=== PATIENT | male | born 1985 | race Caucasian/White ===

== ENCOUNTER 2017-10-06 03:47 | Emergency (ER) | payer SELFPAY ==
[2017-10-06] MEDS: SOD CHLORIDE 0.9% 1,000 ML IV (04:27)
[2017-10-06] MEDS: morphine 4 MG/ML VIAL IV (04:28)
[2017-10-06] MEDS: ONDANSETRON 4 MG INJ IV (04:28)
[2017-10-06 04:41] LABS: ADD MAN DIFF? NO
[2017-10-06 04:43] LABS: WHITE BLOOD COUNT 4.8 10^3/ul (4.8-10.8)
[2017-10-06 04:43] LABS: BASOPHILS % 0.2 % (0.0-2.0); HEMATOCRIT 44.4 % (42.0-52.0); HEMOGLOBIN 15.6 g/dl (14.0-18.0); LYMPHOCYTES # 0.8 10^3/ul (0.8-2.9); LYMPHOCYTES % 17.6 % (15.0-51.0); MEAN CORPUSCULAR HEMOGLOBIN 31.4 pg (29.0-33.0); MEAN CORPUSCULAR HGB CONC 35.1 g/dl (32.0-37.0); MEAN CORPUSCULAR VOLUME 89.3 fl (82.0-101.0); MONOCYTE # 0.5 10^3/ul (0.3-0.9); MONOCYTES % 10.1 % (0.0-11.0); NEUTROPHIL # 3.4 10^3/ul (1.6-7.5); NEUTROPHILS % 71.9 % (39.0-77.0); PLATELET COUNT 164 10^3/UL (140-415); RED BLOOD COUNT 4.97 10^6/ul (4.70-6.10); RED CELL DISTRIBUTION WIDTH 13.6 % (11.5-14.5)
[2017-10-06 05:03] LABS: ALANINE AMINOTRANSFERASE 195 IU/L (13-69); ALBUMIN 5.2 g/dl (3.3-4.9); ALBUMIN/GLOBULIN RATIO 1.36; ALKALINE PHOSPHATASE 116 IU/L (42-121); ANION GAP 27 (8-16); ASPARTATE AMINO TRANSFERASE 231 IU/L (15-46); BILIRUBIN,INDIRECT 1.9 mg/dl (0-1.1); BILIRUBIN,TOTAL 1.9 mg/dl (0.2-1.3); BLOOD UREA NITROGEN 17 mg/dl (7-20); CARBON DIOXIDE 30 mmol/L (21-31); CHLORIDE 86 mmol/L (97-110); CREATININE 0.87 mg/dl (0.61-1.24); GLUCOSE 117 mg/dl (70-220); LIPASE 531 U/L (23-300); POTASSIUM 3.5 mmol/L (3.5-5.1); SODIUM 139 mmol/L (135-144)
== END 2017-10-06 06:16 | disposition home or self-care (01) ==
LOC: E/R 03:47
DX: R10.9 Unspecified abdominal pain (principal); R40.2252 Coma scale, best verbal response, oriented, at arrival to emergency department; F17.210 Nicotine dependence, cigarettes, uncomplicated; R40.2142 Coma scale, eyes open, spontaneous, at arrival to emergency department; R40.2362 Coma scale, best motor response, obeys commands, at arrival to emergency department
CPT/HCPCS: 36415; 71045; 74176; 80053; 83690; 85025; 96374; 96375; 99285-25

== ENCOUNTER 2017-10-06 09:46 | Emergency (ER) | payer SELFPAY ==
[2017-10-06] MEDS: LORAZEPAM 2 MG INJ IV (10:43)
[2017-10-06] MEDS: SOD CHLORIDE 0.9% 1,000 ML IV (10:43)
[2017-10-06 10:54] LABS: ADD MAN DIFF? NO
[2017-10-06] MEDS: LEVETIRACETAM 1000 MG (PMX) 100 ML IVPB (10:59)
[2017-10-06 11:02] LABS: ABNORMAL IP MESSAGE 1; BASOPHILS % 0.4 % (0.0-2.0); HEMOGLOBIN 14.8 g/dl (14.0-18.0); LYMPHOCYTES # 0.5 10^3/ul (0.8-2.9); LYMPHOCYTES % 5.9 % (15.0-51.0); MEAN CORPUSCULAR HEMOGLOBIN 31.5 pg (29.0-33.0); MEAN CORPUSCULAR HGB CONC 34.4 g/dl (32.0-37.0); MEAN CORPUSCULAR VOLUME 91.5 fl (82.0-101.0); MEAN PLATELET VOLUME 9.6 fl (7.4-10.4); MONOCYTE # 0.5 10^3/ul (0.3-0.9); MONOCYTES % 6.5 % (0.0-11.0); NEUTROPHIL # 6.6 10^3/ul (1.6-7.5); NEUTROPHILS % 86.7 % (39.0-77.0); PLATELET COUNT 151 10^3/UL (140-415); POSITIVE DIFF @See below; RED CELL DISTRIBUTION WIDTH 13.6 % (11.5-14.5)
[2017-10-06 11:02] LABS: WHITE BLOOD COUNT 7.6 10^3/ul (4.8-10.8)
[2017-10-06 11:17] LABS: ALANINE AMINOTRANSFERASE 179 IU/L (13-69); ALBUMIN/GLOBULIN RATIO 1.61; ALKALINE PHOSPHATASE 95 IU/L (42-121); ANION GAP 23 (8-16); ASPARTATE AMINO TRANSFERASE 227 IU/L (15-46); BILIRUBIN,INDIRECT 1.9 mg/dl (0-1.1); BILIRUBIN,TOTAL 1.9 mg/dl (0.2-1.3); BLOOD UREA NITROGEN 19 mg/dl (7-20); CALCIUM 10.4 mg/dl (8.4-10.2); CARBON DIOXIDE 31 mmol/L (21-31); CHLORIDE 87 mmol/L (97-110); CREATININE 0.91 mg/dl (0.61-1.24); GLUCOSE 121 mg/dl (70-220); POTASSIUM 4.3 mmol/L (3.5-5.1); SODIUM 137 mmol/L (135-144); TOTAL PROTEIN 8.1 g/dl (6.1-8.1)
[2017-10-06 11:23] LABS: ETHANOL < 10.0 mg/dl
[2017-10-06 11:47] LABS: INR 0.96; PROTIME 12.9 Sec (11.9-14.9)
== END 2017-10-06 15:37 | disposition home or self-care (01) ==
LOC: E/R 09:46
DX: G40.909 Epilepsy, unspecified, not intractable, without status epilepticus (principal); E87.2 Acidosis; K71.0 Toxic liver disease with cholestasis; R74.0 Nonspecific elevation of levels of transaminase and lactic acid dehydrogenase [LDH]; S01.512A Laceration without foreign body of oral cavity, initial encounter; F10.10 Alcohol abuse, uncomplicated; F17.210 Nicotine dependence, cigarettes, uncomplicated; R40.2362 Coma scale, best motor response, obeys commands, at arrival to emergency department; R40.2142 Coma scale, eyes open, spontaneous, at arrival to emergency department; X58.XXXA Exposure to other specified factors, initial encounter; Y92.9 Unspecified place or not applicable
CPT/HCPCS: 36415; 70450; 71045; 80053; 80307; 82962; 85025; 85610; 96365; 96366; 96375; 99285-25